=== PATIENT | male | born 1985 | race American Indian/Alaskan Native ===

== ENCOUNTER 2016-09-23 13:40 | Emergency (ER) | payer MEDICAID, OTHER ==
[2016-09-23 13:56] VITALS: BP 107/69; PULSE 71; RESP 18; TEMP 98.1; O2SAT 99
--- NOTE | 2016-09-23 14:32 | C.PDOC ---
History Of Present Illness 31 y/o male presents to the ED with complaints of pain and swelling to left ankle. [employer]AR [employer]OVOL[employer] INST[employer]ER, patient reports misstepping and inverted his left foot. Pt able to bear weight without difficulty. Denies weakness, numbness or any other complaints. Time Seen by Provider: 09/23/16 14:17 Chief Complaint (Nursing): Lower Extremity Problem/Injury History Per: Patient History/Exam Limitations: no limitations Onset/Duration Of Symptoms: Hrs Current Symptoms Are (Timing): Still Present Severity: Moderate Recent travel outside of the [place]: No - Ankle/Foot Description Of Injury: Twisted Past Medical History Reviewed: Historical Data, Nursing Documentation, Vital Signs Vital Signs: Last Vital Signs Temp 98.1 F 09/23/16 13:55 Pulse 71 09/23/16 13:55 Resp 18 09/23/16 13:55 BP 107/69 09/23/16 13:55 Pulse Ox 99 09/23/16 14:34 Family History: States: Unknown Family Hx - Social History Hx Tobacco Use: No (Denies) Hx Alcohol Use: No (Denies) Hx Substance Use: No (Denies) - Immunization History Hx Tetanus Toxoid Vaccination: No Hx Influenza Vaccination: No Hx Pneumococcal Vaccination: No Review Of Systems Except As Marked, All Systems Reviewed And Found Negative. Constitutional: Negative for: Fever, Chills Musculoskeletal: Positive for: Other (left ankle pain and swelling) Neurological: Negative for: Weakness, Numbness Physical Exam - Physical Exam Appears: Non-toxic, No Acute Distress Skin: Warm, Dry, No Rash Head: Atraumatic, Normacephalic Extremity: Normal ROM, Capillary Refill (<2 seconds), No Deformity, Other ( swelling and tenderness to left lateral malleolus, no bony tenderness; able to bear weight) Pulses: Left Dorsalis Pedis: Normal Neurological/Psych: Oriented x3, Normal Speech, Normal Motor, Normal Sensation ED Course And Treatment O2 Sat by Pulse Oximetry: 99 (room air) Pulse Ox Interpretation: Normal Progress Note: Motrin, referral to orthopedics and applied OPAL wrap Disposition Counseled Patient/Family Regarding: Diagnosis, Need For Followup - Disposition Referrals: Gorge Hendrickson MD [Staff Provider] - Disposition: HOME/ ROUTINE Disposition Time: 14:30 Condition: STABLE Prescriptions: Ibuprofen [Motrin] 600 mg PO TID #15 tab Instructions: RICE [facility] (ED) Forms: General Discharge Instructions, [facility] (Central African), Work Excuse - POA Present On Arrival: None - Clinical Impression Clinical Impression: Sprain of ankle, left - Scribe Statement The provider has reviewed the documentation as recorded by the Naniibamanda Camp Provider Attestation: All medical record entries made by the Naniibe were at my direction and personally dictated by me. I have reviewed the chart and agree that the record accurately reflects my personal performance of the history, physical exam, medical decision making, and the department course for this patient. I have also personally directed, reviewed, and agree with the discharge instructions and disposition.
== END 2016-09-23 14:48 | disposition home or self-care (01) ==
LOC: C.ER 13:40
DX: S93.402A Sprain of unspecified ligament of left ankle, initial encounter (principal); X50.1XXA Overexertion from prolonged static or awkward postures, initial encounter

== ENCOUNTER 2016-12-16 12:36 | Emergency (ER) | payer MEDICAID ==
[2016-12-16 12:42] VITALS: BP 115/69; PULSE 84; RESP 18; TEMP 98.8; O2SAT 97
--- NOTE | 2016-12-16 13:24 | C.PDOC ---
History Of Present Illness 31 year old male presents to the ED for evaluation of right foot pain which began around 1 month ago. Patient describes the pain as a burning sensation. He states the pain occurs intermittently and is worse with walking. Patient also notes he injured his right toe while playing basketball 3 weeks ago, but states the foot pain began prior to this injury. Patient has not been evaluated by his PMD for stated symptoms. He denies fever, back pain, change in sensation, rash, extremity numbness/weakness, or trauma. Time Seen by Provider: 12/16/16 12:53 Chief Complaint (Nursing): Lower Extremity Problem/Injury History Per: Patient History/Exam Limitations: no limitations Onset/Duration Of Symptoms: Days (1 month ), Intermittent Episodes Current Symptoms Are (Timing): Still Present Additional History Per: Patient - Ankle/Foot Description Of Injury: denies: Fell, Struck With Object, Struck Against Object, Twisted Past Medical History Reviewed: Historical Data, Nursing Documentation, Vital Signs Vital Signs: Last Vital Signs Temp 98.8 F 12/16/16 12:41 Pulse 84 12/16/16 12:41 Resp 18 12/16/16 12:41 BP 115/69 12/16/16 12:41 Pulse Ox 97 12/16/16 16:09 - Medical History PMH: No Chronic Diseases Surgical History: No Surg Hx Family History: States: Unknown Family Hx - Social History Hx Tobacco Use: No (Denies) Hx Alcohol Use: No (Denies) Hx Substance Use: No (Denies) - Immunization History Hx Tetanus Toxoid Vaccination: No Hx Influenza Vaccination: No Hx Pneumococcal Vaccination: No Review Of Systems Constitutional: Negative for: Fever, Chills Musculoskeletal: Positive for: Foot Pain (right) Neurological: Negative for: Weakness, Numbness Physical Exam - Physical Exam Appears: Non-toxic, No Acute Distress Skin: Normal Color, Warm, Dry Head: Atraumatic, Normacephalic Eye(s): bilateral: Normal Inspection, EOMI Nose: Normal Oral Mucosa: Moist Chest: Symmetrical Respiratory: No Accessory Muscle Use Extremity: Normal ROM, Tenderness (mild to dorsal aspect of proximal right foot) , Capillary Refill (less than 2 seconds ), No Deformity, No Swelling, Other ( healing subungal hematoma to right great toe) Pulses: Left Dorsalis Pedis: Normal, Right Dorsalis Pedis: Normal Neurological/Psych: Oriented x3, Normal Speech, Normal Cognition, Normal Motor, Normal Sensation Gait: Steady ED Course And Treatment O2 Sat by Pulse Oximetry: 97 (on RA) Pulse Ox Interpretation: Normal Progress Note: Right foot XR ordered, results are unremarkable. On reassessment , patient is resting comfortably, showing no signs of distress and is stable for discharge. Patient is advised to f/u with his PMD and orthopedic care within 1-2 days for futher evaluation. Disposition - Disposition Referrals: Gage Sierra MD [Staff Provider] - Disposition: HOME/ ROUTINE Disposition Time: 13:22 Condition: STABLE Additional Instructions: Rest, ice and elevate the area. Follow up with PMD in 1-2 days. 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 - Scribe Statement The provider has reviewed the documentation as recorded by the Scribe (genoveva montes) All medical record entries made by the Scribe were at my direction and personally dictated by me. I have reviewed the chart and agree that the record accurately reflects my personal performance of the history, physical exam, medical decision making, and the department course for this patient. I have also personally directed, reviewed, and agree with the discharge instructions and disposition.
--- NOTE | 2016-12-16 15:44 | RAD ---
PROCEDURE: Right Foot Radiographs. HISTORY: pain COMPARISON: None. FINDINGS: BONES: Normal. No fracture. JOINTS: Normal. SOFT TISSUES: Normal. OTHER FINDINGS: None. IMPRESSION: Normal right foot radiographs.
== END 2016-12-16 13:34 | disposition home or self-care (01) ==
LOC: C.ER 12:36
DX: S93.601A Unspecified sprain of right foot, initial encounter (principal); X58.XXXA Exposure to other specified factors, initial encounter

== ENCOUNTER 2017-08-27 14:38 | Emergency (ER) | payer MEDICAID, OTHER ==
[2017-08-27 15:00] VITALS: BP 114/67; PULSE 73; RESP 20; TEMP 98.9; O2SAT 97
--- NOTE | 2017-08-27 15:07 | C.PDOC ---
History Of Present Illness 31 yo male come in for evaluation of Right eye redness, itchiness, yellow discharges gradually developed for past 2 days. Pt admits, similar sx in kid. Otherwise, pt denies recent illness, fever, chills, blurry vision, known trauma or injury, FB sensation, headache, dizziness, contact use, denies any other active complains. Ambulate to Ed for evaluation, not in any apparent distress. Time Seen by Provider: 08/27/17 14:45 Chief Complaint (Nursing): Eye Problem History Per: Patient Past Medical History Reviewed: Historical Data, Nursing Documentation, Vital Signs Vital Signs: Last Vital Signs Temp 98.9 F 08/27/17 14:52 Pulse 73 08/27/17 14:52 Resp 20 08/27/17 14:52 BP 114/67 08/27/17 14:52 Pulse Ox 97 08/27/17 14:52 - Medical History PMH: No Chronic Diseases Family History: States: Unknown Family Hx - Social History Hx Tobacco Use: No (Denies) Hx Alcohol Use: No (Denies) Hx Substance Use: No (Denies) - Immunization History Hx Tetanus Toxoid Vaccination: No Hx Influenza Vaccination: No Hx Pneumococcal Vaccination: No Review Of Systems Except As Marked, All Systems Reviewed And Found Negative. Constitutional: Negative for: Fever, Chills Eyes: Positive for: Redness. Negative for: Vision Change, Eyelid Inflammation ENT: Negative for: Ear Discharge, Nose Discharge, Nose Congestion, Mouth Pain, Mouth Swelling, Throat Pain Respiratory: Negative for: Cough, Shortness of Breath, Wheezing Gastrointestinal: Negative for: Nausea, Vomiting, Abdominal Pain, Diarrhea Genitourinary: Negative for: Dysuria Musculoskeletal: Negative for: Neck Pain Skin: Negative for: Rash Neurological: Negative for: Headache, Dizziness Physical Exam - Physical Exam Appears: Well, Non-toxic, No Acute Distress Skin: Normal Color, Warm, No Rash Head: Normacephalic Eye(s): bilateral: PERRL, EOMI (no pain or limitation on extraocular movement B/ L), right: Other (mild conjunctival injection, No discharges, no periorbital edema or erythema) Ear(s): Bilateral: Normal Nose: No Flaring, No Discharge Oral Mucosa: Moist, No Drooling Tongue: Normal Appearing Lips: Normal Appearing Throat: No Erythema, No Drooling Neck: Trachea Midline, Supple Extremity: Normal ROM, No Deformity, No Swelling Neurological/Psych: Oriented x3, Normal Speech ED Course And Treatment O2 Sat by Pulse Oximetry: 97 Pulse Ox Interpretation: Normal Progress Note: On re-evaluation, pt is afebrile, hemodynamicaly stable. Non- toxic. Ambulatory in Ed with stable gait. head: AT/NC. Right eye; exam c/w conjunctivitis likely bacterial, s/p exposure. No pain or limitation on extraocula movement. VA: R/20/20, L 20/20, B/L 20/15 w/o correction. neck: Supple, (-) meningeal sign. ENT: no acute findings. Neuorlogicaly intact. Pt advised. ref. to f/u with Opht in 2-3 days for re-eval. return to ED if any worsening or new changes. Disposition Counseled Patient/Family Regarding: Diagnosis, Need For Followup, Rx Given - Disposition Referrals: Piter Membreno [Staff Provider] - Disposition: HOME/ ROUTINE Disposition Time: 15:04 Condition: STABLE Additional Instructions: Use medication as prescribed Follow up with ophthalmology in 2-3 days if no improvement return if any new changes. Prescriptions: Tobramycin 0.3% [Tobrex 0.3% Ophth Soln] 1 drop RIGHTEYE TID #1 bottle Instructions: Conjunctivitis ([place]e) Forms: [facility] (Spanish), Work Excuse - Clinical Impression Clinical Impression: Conjunctivitis
== END 2017-08-27 15:26 | disposition home or self-care (01) ==
LOC: C.ER 14:38
DX: H10.9 Unspecified conjunctivitis (principal)

== ENCOUNTER 2017-11-26 16:53 | Emergency (ER) | payer SELFPAY ==
[2017-11-26 17:51] VITALS: BMI 24.2
[2017-11-26 17:52] VITALS: BP 105/67; PULSE 73; RESP 18; TEMP 98.4; O2SAT 100
--- NOTE | 2017-11-26 18:07 | C.PDOC ---
History Of Present Illness 32 y/o male presents to the ER for evaluation of left wrist sprain sustained while he was pulling a heavy object at work yesterday. Patient states that he felt a sharp pain in the ulnar aspect of the wrist while he was lifting the object. Patient states that the pain is worse with flexion and the pain is persistent today. Denies having direct trauma, hx of chronic wrist pain. Time Seen by Provider: 11/26/17 17:53 Chief Complaint (Nursing): Finger,Hand,&Wrist History Per: Patient History/Exam Limitations: no limitations Onset/Duration Of Symptoms: Days Current Symptoms Are (Timing): Still Present Severity: Moderate Past Medical History Reviewed: Historical Data, Nursing Documentation, Vital Signs Vital Signs: Last Vital Signs Temp 98.4 F 11/26/17 17:51 Pulse 73 11/26/17 17:51 Resp 18 11/26/17 17:51 BP 105/67 11/26/17 17:51 Pulse Ox 100 11/26/17 18:07 - Medical History PMH: No Chronic Diseases Surgical History: No Surg Hx Family History: States: No Known Family Hx - Social History Hx Tobacco Use: No (Denies) Hx Alcohol Use: No (Denies) Hx Substance Use: No (Denies) - Immunization History Hx Tetanus Toxoid Vaccination: No Hx Influenza Vaccination: No Hx Pneumococcal Vaccination: No Review Of Systems Except As Marked, All Systems Reviewed And Found Negative. Musculoskeletal: Positive for: Other (left wrist pain) Neurological: Negative for: Weakness, Numbness Physical Exam - Physical Exam Appears: Non-toxic, No Acute Distress Skin: Normal Color, Warm, Dry Head: Atraumatic, Normacephalic Eye(s): bilateral: Normal Inspection Respiratory: Other (NARD) Extremity: Normal ROM (reproducible pain over the ulnar aspect of left wrist with flexion), No Tenderness, No Swelling Neurological/Psych: Oriented x3, Normal Speech ED Course And Treatment O2 Sat by Pulse Oximetry: 100 (RA) Pulse Ox Interpretation: Normal - Other Rad L WRIST X-Ray: Interpreted by Me (NEG) Disposition Counseled Patient/Family Regarding: Studies Performed, Diagnosis, Need For Followup, Rx Given - Disposition Referrals: [facility] [Outside] [facility] [Outside] your,workman's comp [Other] Disposition: HOME/ ROUTINE Disposition Time: 18:06 Condition: IMPROVED Prescriptions: Ibuprofen [Motrin] 600 mg PO Q6 #30 tab Instructions: Wrist Sprain (DC) Forms: [facility] (Romanian), Work Excuse - Clinical Impression Clinical Impression: Wrist sprain - Scribe Statement The provider has reviewed the documentation as recorded by the Naniibe Debbie Dorantes Provider Attestation: All medical record entries made by the Scribe were at my direction and personally dictated by me. I have reviewed the chart and agree that the record accurately reflects my personal performance of the history, physical exam, medical decision making, and the department course for this patient. I have also personally directed, reviewed, and agree with the discharge instructions and disposition. Orthopedic Care Application Of:: Volar Splint
--- NOTE | 2017-11-26 18:57 | RAD ---
PROCEDURE: Left Wrist Radiographs. HISTORY: trauma COMPARISON: None available. FINDINGS: BONES: No acute displaced fracture. JOINTS: No dislocation. SOFT TISSUES: Unremarkable. No evidence of radiopaque foreign body OTHER FINDINGS: None. IMPRESSION: No acute displaced fracture, dislocation, or significant joint effusion identified. If symptoms persist, or if there is continued clinical concern, x-ray follow-up in 7-10 days should be considered.
== END 2017-11-26 18:31 | disposition home or self-care (01) ==
LOC: C.ER 16:53
DX: S63.502A Unspecified sprain of left wrist, initial encounter (principal); X50.9XXA Other and unspecified overexertion or strenuous movements or postures, initial encounter; Y92.89 Other specified places as the place of occurrence of the external cause; Y99.0 Civilian activity done for income or pay

== ENCOUNTER 2018-03-29 12:09 | Emergency (ER) | payer SELFPAY ==
[2018-03-29 12:09] VITALS: BMI 24.2
[2018-03-29 12:16] VITALS: BP 127/90; PULSE 89; RESP 18; TEMP 98.1; O2SAT 98
--- NOTE | 2018-03-29 13:18 | C.PDOC ---
History Of Present Illness 32 year old male presents to the ED for an evaluation of abrasions to penis sustained during intercourse last night. Reports he had no pain or discomfort during intercourse. states "woman was not wet" States he noticed minimal abrasions to penis this morning. Denies "cracking sounds". Denies any other complaints. Time Seen by Provider: 03/29/18 13:04 Chief Complaint (Nursing): Abnormal Skin Integrity History Per: Patient History/Exam Limitations: no limitations Onset/Duration Of Symptoms: Hrs Current Symptoms Are (Timing): Still Present Quality Of Symptoms: Painful Past Medical History Reviewed: Historical Data, Nursing Documentation, Vital Signs Vital Signs: Last Vital Signs Temp 98.1 F 03/29/18 12:13 Pulse 89 03/29/18 12:13 Resp 18 03/29/18 12:13 BP 127/90 03/29/18 12:13 Pulse Ox 98 03/29/18 12:13 - Medical History PMH: No Chronic Diseases Surgical History: No Surg Hx Family History: States: No Known Family Hx - Social History Hx Tobacco Use: No (Denies) Hx Alcohol Use: No (Denies) Hx Substance Use: No (Denies) - Immunization History Hx Tetanus Toxoid Vaccination: No Hx Influenza Vaccination: No Hx Pneumococcal Vaccination: No Review Of Systems Except As Marked, All Systems Reviewed And Found Negative. Constitutional: Negative for: Fever, Chills Genitourinary: Positive for: Other (minimal abrasions to penis ) Physical Exam - Physical Exam Appears: Non-toxic, No Acute Distress Skin: Warm, Dry, No Rash Head: Normacephalic Eye(s): bilateral: Normal Inspection Neck: Supple Chest: Symmetrical Cardiovascular: Rhythm Regular Respiratory: Normal Breath Sounds, No Rales, No Rhonchi, No Wheezing Male Genital: Other (minimal abrasions to left side of penis ) Neurological/Psych: Oriented x3, Normal Speech Gait: Steady ED Course And Treatment O2 Sat by Pulse Oximetry: 98 (RA) Pulse Ox Interpretation: Normal Medical Decision Making Medical Decision Making: . Patient feels comfortable going home and will be discharged. Patient given follow up instructions with Dr. Abran Tompkins. Instructed to return to ER if symptoms worsen or new symptoms arise. minmal skin abrasion noted. no penile ttp. no clinical concern for penile fracture. supportive care outpt fu. Disposition - Disposition Referrals: Terra Tompkins MD [Staff Provider] - Disposition: HOME/ ROUTINE Disposition Time: 13:15 Condition: STABLE Additional Instructions: see specialist. return to er with worsening. Instructions: Skin Abrasions Forms: [facility] (Cymro) - Clinical Impression Clinical Impression: Penis abrasion - Scribe Statement The provider has reviewed the documentation as recorded by the Scribe Brooklynn Page All medical record entries made by the Scribe were at my direction and personally dictated by me. I have reviewed the chart and agree that the record a ccurately reflects my personal performance of the history, physical exam, medical decision making, and the department course for this patient. I have also personally directed, reviewed, and agree with the discharge instructions and disposition.
== END 2018-03-29 13:31 | disposition home or self-care (01) ==
LOC: C.ER 12:09
DX: S30.812A Abrasion of penis, initial encounter (principal); X58.XXXA Exposure to other specified factors, initial encounter